=== PATIENT | female | born 1995 | race Caucasian/White ===

== ENCOUNTER 2019-01-13 12:37 | Emergency (ER) | payer MEDICAID, OTHER ==
--- NOTE | 2019-01-13 13:02 | EDPHY ---
H & P Stated Complaint: ADKINS onset 0900 w/ L sided numbness Time Seen by Provider: 01/13/19 12:56 HPI/ROS: CHIEF COMPLAINT: Acute headache, left-sided weakness and numbness HISTORY OF PRESENT ILLNESS: The patient presents to the ED with complaints of an acute headache along her vertex that began at 9:00 a.m. This morning. The patient reports associated left facial weakness and left body weakness. 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 She denies prior history of similar headaches. Patient denies history of similar migraine variants. The patient is not anticoagulated. She denies fever or other acute complaints. REVIEW OF SYSTEMS: A comprehensive 10 point review of systems is otherwise negative aside from elements mentioned in the history of present illness. Source: Patient Exam Limitations: No limitations - Personal History LMP (Females 10-55): IUD In Place Current Tetanus/Diphtheria Vaccine: Yes Current Tetanus Diphtheria and Acellular Pertussis (TDAP): Yes - Medical/Surgical History Hx Asthma: No Hx Chronic Respiratory Disease: No Hx Diabetes: No Hx Cardiac Disease: No Hx Renal Disease: No Hx Cirrhosis: No Hx Alcoholism: No Hx HIV/AIDS: No Hx Splenectomy or Spleen Trauma: No Other PMH: Denies - Social History Smoking Status: Current every day smoker - Physical Exam Exam: General Appearance: Alert, no distress Eyes: Pupils equal and round no pallor or injection ENT, Mouth: Mucous membranes moist Respiratory: There are no retractions, lungs are clear to auscultation Cardiovascular: Regular rate and rhythm Gastrointestinal: Abdomen is soft and nontender, no masses, bowel sounds normal Neurological: Alert and oriented x4, left facial droop appreciated, 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 Skin: Warm and dry, no rashes Musculoskeletal: Neck is supple nontender Extremities: symmetrical, full range of motion Psychiatric: Patient is oriented X 3, there is no agitation Constitutional: Initial Vital Signs Temperature (C) 36.8 C 01/13/19 12:43 Heart Rate 56 L 01/13/19 12:43 Respiratory Rate 16 01/13/19 12:43 Blood Pressure 117/93 H 01/13/19 12:43 O2 Sat (%) 97 01/13/19 12:43 O2 Delivery Mode Room Air Allergies/Adverse Reactions: amoxicillin [Amoxicillin] Allergy (Verified 10/30/15 20:27) Hives Home Medications: Medication Instructions Recorded Nexplanon 10/30/15 Medical Decision Making - Diagnostics EKG Interpretation: EKG: Complete interpretation has been separately recorded in the [employer] archive. Summary impression: Sinus rhythm, rate 56 Imaging Results: Imaging Impressions Head CTA 01/13/19 00:00 Impression: 1. No carotid or vertebral dissection, flow-limiting stenosis or occlusion. 2. Normal CTA of the carotids and vertebral arteries. Measurement of carotid stenosis is based on the residual internal carotid diameter with [place] Symptomatic Carotid Endarterectomy Trial (NASCET) based stenosis levels. CT Angiogram of the Brain Clinical Indications: Stroke alert. Headache, left-sided weakness Technique: CT angiogram of the brain and neck was performed with the uneventful intravenous administration of 95 mL Isovue-370 contrast. Multiplanar reconstructions including 3D reconstructions performed and evaluated on [employer] workstation in order to better evaluate the [place] vessels. Images were manipulated by the radiologist at the computer workstation. Dose reduction techniques were utilized. Findings: Major vessels of the [place] are adequately displayed, demonstrating no evidence of aneurysm, vascular malformation, flow-limiting stenosis, or occlusion. Bilateral cavernous internal carotid arteries and vertebrobasilar system demonstrates no evidence of flow-limiting stenosis, aneurysm, occlusion, or dissection. Superior sagittal sinus, transverse sinuses , and major veins demonstrate no evidence of intraluminal thrombi. Impression: Negative CT angiogram of the brain. Findings and recommendations discussed with Emergency Department physician, Dr. Derick Starkey at 1327 hours on January 13, 2019. Final report concurs with initial preliminary interpretation. Neck CTA 01/13/19 00:00 Impression: 1. No carotid or vertebral dissection, flow-limiting stenosis or occlusion. 2. Normal CTA of the carotids and vertebral arteries. Measurement of carotid stenosis is based on the residual internal carotid diameter with [place] Symptomatic Carotid Endarterectomy Trial (NASCET) based stenosis levels. CT Angiogram of the Brain Clinical Indications: Stroke alert. Headache, left-sided weakness Technique: CT angiogram of the brain and neck was performed with the uneventful intravenous administration of 95 mL Isovue-370 contrast. Multiplanar reconstructions including 3D reconstructions performed and evaluated on [employer] workstation in order to better evaluate the [place] vessels. Images were manipulated by the radiologist at the computer workstation. Dose reduction techniques were utilized. Findings: Major vessels of the [place] are adequately displayed, demonstrating no evidence of aneurysm, vascular malformation, flow-limiting stenosis, or occlusion. Bilateral cavernous internal carotid arteries and vertebrobasilar system demonstrates no evidence of flow-limiting stenosis, aneurysm, occlusion, or dissection. Superior sagittal sinus, transverse sinuses , and major veins demonstrate no evidence of intraluminal thrombi. Impression: Negative CT angiogram of the brain. Findings and recommendations discussed with Emergency Department physician, Dr. Derick Starkey at 1327 hours on January 13, 2019. Final report concurs with initial preliminary interpretation. Head CT 01/13/19 13:00 Impression: 1. No evidence of acute intracranial hemorrhage. With high clinical suspicion for acute ischemia, MRI brain is recommended. 2. Calcified left frontal extra-axial mass, differential considerations include dural osteoma or meningioma. Steve Starkey was notified of these findings by telephone at 1:26 PM on 01/13/2019 Brain MRI 01/13/19 13:39 Impression: 1. No acute infarct, acute hemorrhage, hydrocephalus or mass effect. 2. Left frontal extra-axial benign calcified meningioma or benign osteoma measuring 7 x 17 mm. 3. Patent superior sagittal sinus 4. No sinusitis. Findings and recommendations discussed with Emergency Department physician, Derick Starkey at 15:20 hour, 01/13/2019. Final report concurs with initial preliminary interpretation. ED Course/Re-evaluation: Patient presents to the emergency department with an acute headache associated with left-sided weakness and numbness that began at 9:00 a.m. This morning. I immediately initiated a stroke alert on the patient. I did consult with Dr. Baugh immediately from [facility] who did recommend the patient undergo CT and CT angiography given the duration of her symptoms. CT brain demonstrates no evidence of an intracranial hemorrhage. Angiography of the head neck are normal. The patient was seen by Dr. Baugh via telemedicine consultation. He does not feel the patient is presenting with a stroke syndrome but instead a migraine variant with associated neurologic symptoms. The patient was treated with IV Decadron, Toradol, Reglan and Benadryl. The patient underwent an MRI of the brain which demonstrated no evidence of stroke or mass. I re-evaluated the patient at 3:30 p.m. and find her neurologic examination to be normal. All in all the patient's presentation is 1 consistent with a migraine with associated neurologic symptoms. She has no evidence of a stroke, intracranial mass or meningitis. The patient will be discharged home in stable condition. Differential Diagnosis: Differential diagnosis considered includes migraine, subarachnoid hemorrhage, meningitis, stroke, carotid dissection, central vein thrombosis - Data Points Laboratory Results: 01/13/19 01/13/19 13:16 13:10 POC Hgb 13.9 gm/dL gm/dL (12.6-16.3) POC Hct 41 % % (38-47) POC Sodium 141 mEq/L mEq/L (135-145) POC Potassium 3.8 mEq/L mEq/L (3.3-5.0) POC Chloride 105 mEq/L mEq/L (97-110) POC Total CO2 24 mEq/L mEq/L (22-31) POC BUN 9 mg/dL mg/dL (7-23) POC Creatinine 0.9 mg/dL mg/dL (0.6-1.0) POC Glucose 89 mg/dL mg/dL (70-100) POC Troponin I 0.00 ng/mL ng/mL (0.00-0.08) Medications Given: Discontinued Medications Dexamethasone (Decadron Injection) 10 mg IVP EDNOW ONE Stop: 01/13/19 13:40 Last Admin: 01/13/19 13:44 Dose: 10 mg Diphenhydramine HCl (Benadryl Injection) 25 mg IVP EDNOW ONE Stop: 01/13/19 13:40 Last Admin: 01/13/19 13:44 Dose: 25 mg Ketorolac Tromethamine (Toradol) 30 mg IVP EDNOW ONE Stop: 01/13/19 13:40 Last Admin: 01/13/19 13:44 Dose: 30 mg Metoclopramide HCl (Reglan Injection) 10 mg IVP EDNOW ONE Stop: 01/13/19 13:40 Last Admin: 01/13/19 13:44 Dose: 10 mg Point of Care Test Results: Chemistry 01/13/19 01/13/19 13:16 13:10 POC Sodium 141 mEq/L mEq/L (135-145) POC Potassium 3.8 mEq/L mEq/L (3.3-5.0) POC Chloride 105 mEq/L mEq/L (97-110) POC Total CO2 24 mEq/L mEq/L (22-31) POC BUN 9 mg/dL mg/dL (7-23) POC Creatinine 0.9 mg/dL mg/dL (0.6-1.0) POC Glucose 89 mg/dL mg/dL (70-100) POC Troponin I 0.00 ng/mL ng/mL (0.00-0.08) ISTAT H&H 01/13/19 13:10 POC Hgb 13.9 gm/dL gm/dL (12.6-16.3) POC Hct 41 % % (38-47) Departure - Departure Disposition: Home, Routine, Self-Care Clinical Impression: Migraine Condition: Good Instructions: Migraine Headache (ED) Additional Instructions: 1. Take Ibuprofen or Motrin 600 mg by mouth three times a day. 2. Return to the ED for markedly worsening symptoms or other concerns. 3. Please schedule a follow-up appointment with a neurologist you have been referred to if you continue to have problems with migraines. Referrals: Bora Carlson MD [Medical Doctor] - As per Instructions
[2019-01-13] MEDS ORDERED: DEXAMETHASONE 10 MG/ML VIAL IVP ONE (13:39)
[2019-01-13] MEDS ORDERED: METOCLOPRAMIDE 10 MG/2 ML VIAL IVP ONE (13:39)
[2019-01-13] MEDS ORDERED: KETOROLAC 30 MG/1 ML SDV IVP ONE (13:39)
--- NOTE | 2019-01-13 14:10 | CPEKG ---
Test Reason : OPEN Blood Pressure : / mmHG Vent. Rate : 056 BPM Atrial Rate : 000 BPM P-R Int : 131 ms QRS Dur : 096 ms QT Int : 456 ms P-R-T Axes : 053 050 018 degrees QTc Int : 441 ms Sinus rhythm Confirmed by Derick Starkey ([id number]) on 01/13/2019 2:09:40 PM Referred By: Derick Starkey Confirmed By:Derick Starkey
[2019-01-13 15:41] VITALS: BP 116/89
== END 2019-01-13 15:41 | disposition home or self-care (01) ==
LOC: EDUNIT#
DX: G43.909 Migraine, unspecified, not intractable, without status migrainosus (principal); R20.0 Anesthesia of skin
CPT/HCPCS: 70551-PN; 82435-PO; 82565-PO; 82947-PO; 84132-PO; 84295-PO; 84484-ER; 84520-PO; 85014-ER; 96374; J1100; J1200; J1885; J2765